=== PATIENT | female | born 1940 | race Two or more races ===

== ENCOUNTER → 2016-11-13 | Outpatient (CLI) | payer MEDICARE, MEDICAID ==
[~2016-11-13] VITALS: Ht 139.7 cm; Wt 66.0 kg
[~2016-11-13] MED LIST: ACET-66 PO; ALBU8HFA4 IH; AMLO-511 PO; ATOR20TA86 PO; CHOL200016 PO; CYCL10 PO; FURO20 PO; GABA-531 PO; HYDR-3965 PO; LEVO25TA9 PO; LOSA50TA37 PO; METO50 PO; MIRALAX PO; OMEP20 PO; PARO10TA89 PO; TRAM50TA4 PO
[2016-11-13 10:39] VITALS: BP 106/55
== END | disposition home or self-care (01) ==
LOC: SRCNTR 10:15
PROVIDERS: ATTEND Internal Medicine Cardiovascular Disease
DX: J44.9 Chronic obstructive pulmonary disease, unspecified (principal); E78.5 Hyperlipidemia, unspecified; I12.9 Hypertensive chronic kidney disease with stage 1 through stage 4 chronic kidney disease, or unspecified chronic kidney disease; N18.3 Chronic kidney disease, stage 3 (moderate); I49.9 Cardiac arrhythmia, unspecified
CPT/HCPCS: G0463

== ENCOUNTER → 2017-01-13 | Outpatient (CLI) | payer MEDICARE, MEDICAID ==
[~2017-01-13] VITALS: Ht 142.2 cm; Wt 64.0 kg
[~2017-01-13] MED LIST changes: -LOSA50TA37 PO
[2017-01-13 11:27] VITALS: BP 137/71
== END | disposition home or self-care (01) ==
LOC: SRCNTR 11:07
PROVIDERS: ATTEND Internal Medicine Cardiovascular Disease
DX: J44.9 Chronic obstructive pulmonary disease, unspecified (principal); I12.9 Hypertensive chronic kidney disease with stage 1 through stage 4 chronic kidney disease, or unspecified chronic kidney disease; N18.3 Chronic kidney disease, stage 3 (moderate); E78.5 Hyperlipidemia, unspecified; I49.9 Cardiac arrhythmia, unspecified; M79.89 Other specified soft tissue disorders
CPT/HCPCS: G0463